=== PATIENT | male | born 1970 | race Two or more races ===

== ENCOUNTER 2018-01-18 16:06 | Emergency (ER) | payer SELFPAY ==
[2018-01-18 16:19] VITALS: BP 184/119
[2018-01-18] MEDS ORDERED: NORMAL SALINE 1000 ML 1,000 ML IV PRN (16:35)
[2018-01-18] MEDS ORDERED: NORMAL SALINE 1000 ML 1,000 ML IV ONE (16:35)
[2018-01-18] MEDS ORDERED: ONDANSETRON HCL INJ/PF 4 MG/2 ML SDV IV ONE (16:36)
[2018-01-18] MEDS ORDERED: KETOROLAC TROMETHAMINE INJ/PF 30 MG/1 ML SDV IV ONE (16:36)
[2018-01-18] MEDS ORDERED: FENTANYL CITRATE INJ/PF 100 MCG/2 ML AMPUL IV ONE (16:36)
--- NOTE | 2018-01-18 16:37 | ER Document Report ---
ED Medical Screen (RME) - General Chief Complaint: Flank Pain Stated Complaint: FLANK PAIN Time Seen by Provider: 01/18/18 16:32 Notes: 47 years old [place], with a history of kidney stone presents today with left flank pain for the last 4-5 days, taking oxycodone without any help. Today the pain was increased in intensity with hematuria therefore present to the ED. Severity of the pain is severe TRAVEL OUTSIDE OF THE [place] IN LAST 30 DAYS: No - Related Data Allergies/Adverse Reactions: No Known Allergies Allergy (Unverified 01/18/18 16:07) Past Medical History - Social History Frequency of alcohol use: None Drug Abuse: None Renal/ Medical History: Reports: Hx Kidney Stones. Denies: Hx Peritoneal Dialysis Physical Exam - Vital signs Vitals: Temp Pulse Resp BP Pulse Ox 97.8 F 74 22 H 184/119 H 97 01/18/18 16:13 01/18/18 16:13 01/18/18 16:13 01/18/18 16:13 01/18/18 16:13 Course - Vital Signs Vital signs: Temp Pulse Resp BP Pulse Ox 97.8 F 74 22 H 184/119 H 97 01/18/18 16:13 01/18/18 16:13 01/18/18 16:13 01/18/18 16:13 01/18/18 16:13
[2018-01-18 17:36] LABS: APPEARANCE,URINE CLEAR; BILIRUBIN,URINE NEGATIVE (NEGATIVE); COLOR,URINE YELLOW; GLUCOSE, URINE NEGATIVE (NEGATIVE); KETONES,URINE NEGATIVE (NEGATIVE); LEUKOCYTE ESTERASE,URINE NEGATIVE (NEGATIVE); NITRITE,URINE NEGATIVE (NEGATIVE); PROTEIN,URINE 30 mg/dL (NEGATIVE); URINE SPECIFIC GRAVITY 1.015; UROBILINOGEN,URINE NEGATIVE mg/dL (<2.0)
== END 2018-01-18 17:17 | disposition left against medical advice (07) ==
LOC: ER 16:06
DX: R10.9 Unspecified abdominal pain (principal); Z87.442 Personal history of urinary calculi
CPT/HCPCS: 36415; 81001; 99284